=== PATIENT | male | born 2005 | race Caucasian/White ===

== ENCOUNTER 2024-01-30 20:27 | Inpatient (IN) ==
[2024-01-30] MEDS ORDERED: hydrOXYzine HCl 25 MG TAB PO PRN (20:38)
[2024-01-30] MEDS ORDERED: ACETAMINOPHEN 325 MG TAB PO PRN (20:38)
[2024-01-30] MEDS ORDERED: SODIUM CHLORIDE 0.65% NA SOLN 45 ML (OCEAN) PRN (20:38)
[2024-01-30] MEDS ORDERED: BISMUTH SUBSALICYLATE LIQD 236 ML PO PRN (20:38)
[2024-01-30] MEDS ORDERED: ALUMINUM/MAGNESIUM SUSP 30 ML UDC PO PRN (20:38)
[2024-01-30] MEDS ORDERED: MAGNESIUM HYDROXIDE SUSP 30 ML UDC PO PRN (20:38)
[2024-01-30] MEDS: estradioL 1 MG TAB PO SCH (21:52)
[2024-01-30] MEDS: SPIRONOLACTONE 25 MG TAB PO SCH (21:53)
[2024-01-30] MEDS: PARoxetine HCL 10 MG TAB PO SCH (21:53)
[2024-01-31] MEDS: hydrOXYzine HCl 25 MG TAB PO PRN (01:26)
[2024-01-31] MEDS: estradioL 1 MG TAB PO SCH (09:40)
[2024-01-31] MEDS: SPIRONOLACTONE 100 MG TAB PO SCH (09:41)
[2024-01-31] MEDS: PROGESTERONE, MICRONIZED 100 MG CAP PO SCH (09:41)
[2024-01-31] MEDS: FLUoxetine HCL 20 MG CAP PO SCH (14:47)
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
[2024-01-31] MEDS: PARoxetine HCL 10 MG TAB PO SCH (21:27)
[2024-01-31] MEDS: MELATONIN 3 MG TAB PO SCH (21:28)
--- NOTE | 2024-02-01 14:44 | Psychiatric Progress Note ---
Date of Service February 01, 2024 Impression / Recommendations Impression ANALI Rueda" is a 19-year-old male to female transgender history of depression and ADHD who self presents with suicidal ideation with a plan to ride her bike into traffic. She was admitted on 01/30/24 20:27 on a 201 voluntary commitment for suicidal ideation. A: Patient presents intense and unstable emotions putting anger. Patient was provided education about her diagnosis, treatment options and potential for improvement. She is tolerating the cross tapering of paroxetine to fluoxetine well. Overall, I spent a total of 45 minutes with this case including review of chart records, nursing report, review of lab work, direct evaluation of the patient at bedside, counseling the patient, multidisciplinary team meeting, orders, and documentation in the electronic health record. (1) Borderline personality disorder: (2) Depression with suicidal ideation: (3) Attention and concentration deficit: Plan 02/01/2024: Continue medications and treatment plan. 01/31/2024: Start melatonin 3 mg at bedtime. Reduce home paroxetine to 15 mg at bedtime. Start fluoxetine 20 mg daily. Inventory Assets Strengths: social supports, financial resources Needs: outpatient medication management, intensive outpatient program Suicide Risk Level Suicide Risk Level: Moderate (q15 min suicide checks) Risk Factors Assessment Male: No : Yes Do You Have Access To A Gun?: No Health Problems: No Mental Health Diagnoses: Yes Substance Use Disorders: No Previous Attempt: No Family History of Suicide: No Previous Psychiatric Hospitalization: Yes Hopelessness: No Protective Factors Assessment Rastafarian Beliefs: No : No Responsible for Young Children: No Employed: Yes Stable Relationships: No Supportive Family: Yes Good Rapport with Provider: Yes Absence of Any Risk Factors Above: No Interval History Identifying Information ANALI Rueda" is a 19-year-old male to female transgender history of depression and ADHD who self presents with suicidal ideation with a plan to ride her bike into traffic. She was admitted on 01/30/24 20:27 on a 201 voluntary commitment for suicidal ideation. Chief Complaint Anxiety, hopelessness Review of Systems Sleep Information Total Hours of Sleep: 6.5 Meal Information Percent Meal Consumed - Breakfast: 100 Percent Meal Consumed - Lunch: 100 Percent Meal Consumed - Dinner: 100 Subjective Subjective Patient was seen & assessed and interval progress reviewed with nursing and social work Overnight nursing reported patient presented verbal outburst and intense anger in group. Patient was seen in the cafeteria room. He reports not sleeping well. Presents poor engagement in the interview and appears ambivalent. Apologizes for her behavior yesterday and appears upset. Reassured. She asked about the borderline personality disorder screener that was given to her yesterday and we clarify diagnosis and provide education. Reports tolerating the decrease in paroxetine and initiation of fluoxetine well with no noted side effects. She reports some hopelessness. She denies suicidal ideation. Physical Exam Mental Examination Appearance: Disheveled Eye Contact: Maintains Eye Contact Motor Behavior: Unremarkable Speech: Soft and Delayed Mood: Anxious Affect: Calm Thought Process: Intact and Circumstantial Thought Content: Circumstantial Hallucinations: None Insight: Poor Judgement: Poor Vital Signs (Past 24 Hours) Last Vital Signs Temp 36.4 C L 02/01/24 06:46 Pulse 79 02/01/24 06:46 Resp 16 02/01/24 06:46 BP 103/67 02/01/24 06:46 Pulse Ox 100 01/30/24 20:45 O2 Del Method Room Air 01/30/24 20:45 Results & Data ([facility]) Current Inpatient Medications Current Inpatient Medications: Current Inpatient Medications Acetaminophen (Acetaminophen 325 Mg Tab) 650 mg PO Q4H PRN PRN Reason: Headache or Minor Fever Stop: 02/29/24 20:37 Al Hydrox/Mg Hydrox/Simethicone (Aluminum/Magnesium Susp 30 Ml Udc) 30 ml PO Q4H PRN PRN Reason: GI Upset Stop: 02/29/24 20:37 Bismuth Subsalicylate (Bismuth Subsalicylate Liqd 236 Ml) 15 ml PO PRN PRN PRN Reason: Loose Stool Stop: 02/29/24 20:37 Estradiol (Estradiol 1 Mg Tab) 4 mg PO QAM [place] Stop: 03/01/24 08:59 Last Admin: 02/01/24 09:38 Dose: 4 mg Estradiol (Estradiol 1 Mg Tab) 2 mg PO HS [place] Stop: 02/29/24 21:59 Last Admin: 01/31/24 21:28 Dose: 2 mg Fluoxetine HCl (Fluoxetine Hcl 20 Mg Cap) 20 mg PO QAM [place] Stop: 03/01/24 12:29 Last Admin: 02/01/24 09:39 Dose: 20 mg Hydroxyzine HCl (Hydroxyzine Hcl 25 Mg Tab) 50 mg PO HSZ PRN PRN Reason: Insomnia Stop: 02/29/24 20:37 Last Admin: 01/31/24 01:26 Dose: 50 mg Hydroxyzine HCl (Hydroxyzine Hcl 25 Mg Tab) 25 mg PO Q4H PRN PRN Reason: Anxiety Stop: 02/29/24 20:37 Magnesium Hydroxide (Magnesium Hydroxide Susp 30 Ml Udc) 30 ml PO DAILY PRN PRN Reason: Constipation Stop: 02/29/24 20:37 Melatonin (Melatonin 3 Mg Tab) 3 mg PO HS [place] Stop: 03/01/24 21:59 Last Admin: 01/31/24 21:28 Dose: 3 mg Paroxetine HCl (Paroxetine Hcl 10 Mg Tab) 15 mg PO HS [place] Stop: 03/01/24 21:59 Last Admin: 01/31/24 21:27 Dose: 15 mg Progesterone (Progesterone, Micronized 100 Mg Cap) 100 mg PO QAM [place] Stop: 03/01/24 08:59 Last Admin: 02/01/24 09:39 Dose: 100 mg Sodium Chloride (Sodium Chloride 0.65% Na Soln 45 Ml ([place])) 1 - 2 sprays NA PRN PRN PRN Reason: Nasal Dryness/Congestion Stop: 02/29/24 20:37 Spironolactone (Spironolactone 25 Mg Tab) 50 mg PO HS [place] Stop: 02/29/24 21:59 Last Admin: 01/31/24 21:28 Dose: 50 mg Spironolactone (Spironolactone 100 Mg Tab) 100 mg PO QAM [place] Stop: 03/01/24 08:59 Last Admin: 02/01/24 09:39 Dose: 100 mg Mental Health & Subst Abuse Tx Psychiatrist Name of Psychiatrist: Bee Ram Psychiatrist's Date Of Appointment With Psychiatric Provider: 02/13/24 Time of Appointment with Psychiatrist: 8:00 AM Psychiatric Appointment Comment: telehealth Therapist Name of Therapist: Bee Baker Therapist's Date of Therapist Appointment: 02/07/24 Time of Therapist Appointment: 1:30 PM Therapy Appointment Comment: telehealth Post Discharge Appointments Primary Care Physician Name Of Family Doctor/PCP: Bee Specialist Name of Specialist: [facility] Phone Number for Specialist: [phone] Specialty Appointment Comment: Please ask psychiatrist for a referral if you are interested in IOP.
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
[2024-02-02] MEDS ORDERED: DESTROY THIS MEDICATION ONE (11:50)
== END 2024-02-02 13:30 | disposition home or self-care (01) | DRG 883 ==
LOC: 3S 20:27